=== PATIENT | female | born 1940 | race Caucasian/White ===

== ENCOUNTER → 2017-09-03 | Outpatient (CLI) | payer MEDICARE, BC ==
[~2017-09-03] MED LIST: AMLO5TAB4 PO; ATOR20TA PO; CLON0.5T3 PO; DIAZ5TAB4 PO; FERR-26 PO; IBUP-1060 PO; IBUP1TAB7 PO; LINA145C PO; MOME17SP NS; RANI300C PO; TRIA1CAP3 PO
--- NOTE | 2017-09-03 14:36 | KCIC ---
MRI right knee without contrast dated 09/03/2017 1:15 PM Indication: Knee pain instability lateral pain, worsening in recent months. Comparison: No comparison is available. Technique: Routine multiplanar multisequence imaging performed. . Findings: Bone marrow signal is homogeneous. No marrow edema. Mild tricompartmental hypertrophic change. Thinning and surface irregularity of the articular cartilage throughout. Full-thickness cartilage loss at the medial aspect of the lateral femoral condyle. Full-thickness cartilage loss is also noted at the patellar apex and medial patellar facet and lateral femoral trochlea. Small joint effusion. No significant popliteal cyst. No intra-articular loose body. Anterior cruciate and posterior cruciate ligaments are intact. Medial and lateral collateral complexes are intact. Iliotibial band, popliteus tendon and pes anserine complex within normal limits. There is mild increased signal within the substance of the popliteus tendon proximally. Quadriceps and patellar tendon are intact. No abnormality of the medial or lateral retinaculum. Horizontal oblique tear lateral meniscal body with linear signal extending to the femoral articular surface on 2 consecutive coronal slices. There is also blunting of the free edge of the anterior horn lateral meniscus. Possible displaced meniscal fragment at the anterior aspect the intercondylar notch (series 10 image 15). Posterior horn is intact. Medial meniscus is normal in morphology and signal. IMPRESSION: 1. Complex tear anterior horn/body of lateral meniscus. 2. 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 There is full-thickness cartilage loss at the anterior and lateral compartments. 3. Small joint effusion. 4. Mild popliteus tendinosis. Electronically signed by: Lance Lorenzo MD (09/03/2017 2:33 PM) [id number]
== END | disposition home or self-care (01) ==
LOC: KCIC MRI 13:05
PROVIDERS: ATTEND Family Medicine
DX: S83.281A Other tear of lateral meniscus, current injury, right knee, initial encounter (principal); M17.11 Unilateral primary osteoarthritis, right knee; X58.XXXA Exposure to other specified factors, initial encounter; Y93.89 Activity, other specified; Y92.89 Other specified places as the place of occurrence of the external cause; Y99.8 Other external cause status
CPT/HCPCS: 73721

== ENCOUNTER 2022-02-09 12:03 | Inpatient (IN) | payer MEDICARE, BC ==
[~2022-02-09] VITALS: Ht 162.6 cm; Wt 52.5 kg
[~2022-02-09 12:03] MED LIST changes: +CLON-77 PO; -CLON0.5T3 PO; -FERR-26 PO; +FERR325T14 PO; -LINA145C PO; +LINZESS145 MCG PO; -MOME17SP NS; +MOME17SP5 NS
--- NOTE | 2022-02-09 13:30 | NUR ---
received Lupe from [facility]. awaiting orders. history and admission completed. saline lock present right ac.
[2022-02-09 13:31] VITALS: BP 153/48
[2022-02-09 15:00] VITALS: BP 154/44
[2022-02-09] MEDS ORDERED: ONDANSETRON PF 4 MG/2 ML VIAL. IVP PRN (15:45)
[2022-02-09] MEDS ORDERED: ACETAMINOPHEN 325 MG TABLET. PO PRN (15:45)
[2022-02-09] MEDS ORDERED: ELECTROLYTE (NON-ICU) PROTOCOL. MC PRN (15:45)
[2022-02-09] MEDS ORDERED: oxyCODONE/APAP 5/325 1 TAB TABLET PO PRN (15:45)
[2022-02-09] MEDS ORDERED: CALCIUM CARBONATE 500 MG TAB.CHEW PO PRN (15:45)
--- NOTE | 2022-02-09 16:00 | NUR ---
original dressing from [facility] removed and photo taken and replace dressing. dr. Bobo here orders received consults called in
--- NOTE | 2022-02-09 17:00 | NUR ---
dr. Ramirez here. removed dressing. daughter here. she is planning debridement and skin graft on
--- NOTE | 2022-02-09 17:20 | PDOC2 ---
CONSULT Date of Consult Date of Consult DATE: 02/09/22 TIME: 17:16 Reason for Consult Reason for Consult: Left forearm wound Referring Physician Referring Physician: MD Amie Identification/Chief Complaint Chief Complaint Left forearm wound status post fall Source Source: Caregiver, Chart review, Patient History of Present Illness Reason for Visit: Patient presents as a transfer from [facility]. She was admitted there approximately 2 days ago after suffering a fall of unknown etiology. As result of her fall she sustained a traumatic skin avulsion of her left forearm, resulting in the sloughing of the skin, revealing the underlying subcutaneous tissue. Her daughter showed me a photo of the initial wound. The patient is taking Eliquis for atrial fibrillation, her last dose was received today per nursing staff. Staff reports that x-rays were obtained and were negative for fracture or dislocation. Patient denies signs or symptoms of infection such as fever, chills, nausea, vomiting, fluctuance, purulent discharge, itching, or increasing pain at the site. Past Medical History Past Medical History Hypertension, hyperlipidemia, atrial fibrillation on Eliquis, hypothyroidism Past Surgical History Past Surgical History Noncontributory Family History Family History Noncontributory Social History Quit Current Problem List Problem List Left forearm wound, status post fall Active anticoagulation Current Medications Current Medications Current Medications Ondansetron HCl (Zofran) 4 mg PRN Q6HRS PRN IVP NAUSEA/VOMITING; Start 02/09/22 at 15:45 Calcium Carbonate/ Glycine (Tums) 500 mg PRN Q3HRS PRN PO UPSET STOMACH; Start 02/09/22 at 15:45 Info (Non-Icu Electrolyte Protocol) 1 ea PRN DAILY PRN MC SEE COMMENTS; Start 02/09/22 at 15:45 Oxycodone/ Acetaminophen (Percocet 5/325) 1 tab PRN Q4HRS PRN PO MILD PAIN, 1ST CHOICE; Start 02/09/22 at 15:45 Oxycodone/ Acetaminophen (Percocet 5/325) 2 tab PRN Q4HRS PRN PO MODERATE PAIN, SEVERE PAIN; Start 02/09/22 at 15:45 Acetaminophen (Tylenol) 650 mg PRN Q6HRS PRN PO Headaches, Temp > 101.5F; Start 02/09/22 at 15:45 Senna/Docusate Sodium (Senna Plus) 1 tab BID PO ; Start 02/09/22 at 21:00 Amlodipine Besylate (Norvasc) 5 mg DAILY PO ; Start 02/10/22 at 09:00 Atorvastatin Calcium (Lipitor) 20 mg QHS PO ; Start 02/10/22 at 21:00 Diazepam (Valium) 5 mg DAILY PO ; Start 02/10/22 at 09:00 Ferrous Sulfate (Feosol) 325 mg DAILY PO ; Start 02/10/22 at 09:00 Fluticasone Propionate (Flonase) 2 spray DAILY NS ; Start 02/10/22 at 09:00 Famotidine (Pepcid) 20 mg BID PO ; Start 02/09/22 at 21:00 Triamterene/HCTZ (Maxzide 37.5/ 25mg) 1 tab DAILY PO ; Start 02/10/22 at 09:00 Active Scripts Active Reported Ferrous Sulfate 325 Mg Tablet 325 Mg PO Diazepam 5 Mg Tablet 5 Mg PO DAILY Linzess (Linaclotide) 145 Mcg Capsule 145 Mcg PO Norvasc (Amlodipine Besylate) 5 Mg Tablet 5 Mg PO DAILY Triamterene-Hctz 37.5-25 Mg Cp (Triamterene/Hydrochlorothiazid) 1 Each Capsule 1 Cap PO DAILY Lipitor (Atorvastatin Calcium) 20 Mg Tablet 20 Mg PO DAILY Clonazepam (Clonazepam) 0.5 Mg Tablet 0.5 Mg PO BID Ibuprofen 800 Mg Tablet 800 Mg PO Q6H PRN Ranitidine Hcl 300 Mg Capsule 300 Mg PO DAILY Nasonex (Mometasone Furoate) 17 Gm [place].pump 2 Sprays NS DAILY Motrin Pm Caplet (Ibuprofen/Diphenhydramine Cit) 1 Each Tablet 1 Each PO Allergies Allergies: Coded Allergies: propoxyphene (Verified Allergy, Intermediate, 02/09/22) ROS Review of System See HPI Physical Exam General: Alert, Oriented X3, Cooperative Lungs: Normal air movement Extremities: Other (Left forearm with large dorsal wound measuring at least 15 x 7 cm with nonexpanding hematoma distally and devitalized epidermis overlying the hematoma. Some exposed dermis. Xeroform dressing, ABD, and rolled gauze reapplied. Patient with good range of motion of the digits, hand, wrist, forearm, and elbow. Sensation intact surrounding the wound. Neurovascularly intact.) Skin: Other (Bruising across left arm and left lateral chest wall/flank) Neuro: Other (Ambulates with assistance and use of walker) Vitals VITALS Vital Signs Date Time Temp Pulse Resp B/P (MAP) Pulse Ox O2 Delivery O2 Flow Rate FiO2 02/09/22 15:00 97.9 67 10 154/44 (80) 92 Room Air 97.9 02/09/22 13:31 2.0 Labs Labs Pending review Images Images Pending review Assessment/Plan Assessment/Plan 02/07 Pt 10.2, INR 1, apTT <21sec 02/08: WBC 6.3, Hgb 10.4, Hct 31.8, Plts 169 The patient has a fairly large wound to the dorsum of her left forearm. Considering the devitalized tissue, stable hematoma, and pictures of the exposed subcutaneous tissue, the prospects of this healing on its own are slim. We will verify when the patient's last dose of Eliquis was taken. Staff advised to discontinue Eliquis now. Will plan to debride the left forearm wound this week pending OR availability. We will plan for split thickness skin graft versus wound VAC depending on operative findings. Discussed the plan with the patient and her daughter. They understood and agreed. Please obtain new labs and will follow up timing of last Eliquis dose. MD LILIANA Best RAVEN C MD Feb 09, 2022 17:20
[2022-02-09] MEDS: oxyCODONE/APAP 5/325 1 TAB TABLET PO PRN (18:00)
--- NOTE | 2022-02-09 19:27 | PDOC1 ---
History and Physical Date of Service: DOS: DATE: 02/09/22 TIME: 19:26 Chief Complaint: Chief Complain: arm laceration History of Present Illness: HPI: Patient transferred from outside facility due to right arm laceration possibly needing surgical intervention. Patient definitely has some baseline mental deficits that has been providing a pretty inconsistent history. She told me that she fell at home causing the laceration and she has been at [facility] for the past week and transferred here from there for surgery eval. Transfer records indicate patient came from [facility]. History below obtained by plastic surgery provider Patient presents as a transfer from [facility]. She was admitted there approximately 2 days ago after suffering a fall of unknown etiology. As result of her fall she sustained a traumatic skin avulsion of her left forearm, resulting in the sloughing of the skin, revealing the underlying subcutaneous tissue. Her daughter showed me a photo of the initial wound. The patient is taking Eliquis for atrial fibrillation, her last dose was received today per nursing staff. Staff reports that x-rays were obtained and were negative for fracture or dislocation. Patient denies signs or symptoms of infection such as fever, chills, nausea, vomiting, fluctuance, purulent discharge, itching, or increasing pain at the site. Past Medical/Surgical History: PMH/PSH: HTN, Afib,, anxiety Allergies: Allergies: Coded Allergies: propoxyphene (Verified Allergy, Intermediate, 02/09/22) Family History: Family History: none known Social History: Social History: Former smoker. Denies alcohol drug use Current Medications: Current Medications Current Medications Ondansetron HCl (Zofran) 4 mg PRN Q6HRS PRN IVP NAUSEA/VOMITING; Start 02/09/22 at 15:45 Calcium Carbonate/ Glycine (Tums) 500 mg PRN Q3HRS PRN PO UPSET STOMACH; Start 02/09/22 at 15:45 Info (Non-Icu Electrolyte Protocol) 1 ea PRN DAILY PRN MC SEE COMMENTS; Start 02/09/22 at 15:45 Oxycodone/ Acetaminophen (Percocet 5/325) 1 tab PRN Q4HRS PRN PO MILD PAIN, 1ST CHOICE Last administered on 02/09/22at 18:00; Start 02/09/22 at 15:45 Oxycodone/ Acetaminophen (Percocet 5/325) 2 tab PRN Q4HRS PRN PO MODERATE PAIN, SEVERE PAIN; Start 02/09/22 at 15:45 Acetaminophen (Tylenol) 650 mg PRN Q6HRS PRN PO Headaches, Temp > 101.5F; Start 02/09/22 at 15:45 Senna/Docusate Sodium (Senna Plus) 1 tab BID PO ; Start 02/09/22 at 21:00 Amlodipine Besylate (Norvasc) 5 mg DAILY PO ; Start 02/10/22 at 09:00 Atorvastatin Calcium (Lipitor) 20 mg QHS PO ; Start 02/10/22 at 21:00 Diazepam (Valium) 5 mg DAILY PO ; Start 02/10/22 at 09:00 Ferrous Sulfate (Feosol) 325 mg DAILY PO ; Start 02/10/22 at 09:00 Fluticasone Propionate (Flonase) 2 spray DAILY NS ; Start 02/10/22 at 09:00 Famotidine (Pepcid) 20 mg BID PO ; Start 02/09/22 at 21:00 Triamterene/HCTZ (Maxzide 37.5/ 25mg) 1 tab DAILY PO ; Start 02/10/22 at 09:00 Active Scripts Active Reported Ferrous Sulfate 325 Mg Tablet 325 Mg PO Diazepam 5 Mg Tablet 5 Mg PO DAILY Linzess (Linaclotide) 145 Mcg Capsule 145 Mcg PO Norvasc (Amlodipine Besylate) 5 Mg Tablet 5 Mg PO DAILY Triamterene-Hctz 37.5-25 Mg Cp (Triamterene/Hydrochlorothiazid) 1 Each Capsule 1 Cap PO DAILY Lipitor (Atorvastatin Calcium) 20 Mg Tablet 20 Mg PO DAILY Clonazepam (Clonazepam) 0.5 Mg Tablet 0.5 Mg PO BID Ibuprofen 800 Mg Tablet 800 Mg PO Q6H PRN Ranitidine Hcl 300 Mg Capsule 300 Mg PO DAILY Nasonex (Mometasone Furoate) 17 Gm [place].pump 2 Sprays NS DAILY Motrin Pm Caplet (Ibuprofen/Diphenhydramine Cit) 1 Each Tablet 1 Each PO ROS: Review of Systems Review of System Unless noted HPI 14 point review of systems was negative Physical Exam: Vital Signs: Vital Signs Date Time Temp Pulse Resp B/P (MAP) Pulse Ox O2 Delivery O2 Flow Rate FiO2 02/09/22 18:00 20 02/09/22 15:00 97.9 67 154/44 (80) 92 Room Air 97.9 02/09/22 14:00 2.0 Physcial Exam: GEN: No apparent distress. Alert and oriented HEENT: Normal cephalic, atraumatic, external auditory canals are patent EYES: Extraocular muscles are intact, pupil are equally round and reactive to light and accommodation MUSCULOSKELETAL: Well developed , well nourished, good range of motion ENDOCRINE: No thyromegaly was palpated LYMPHATICS: No cervical chain or axillary nodes were noted HEMATOPOIETIC: No bruising NECK: Supple, no JVD, no thyromegaly was noted LUNGS: Clear to auscultation in all lung ruiz without rhonchi or wheezing HEART: RRR, S!, S2 present. Peripheral pulses intact, no obvious murmurs noted ABDOMEN: Soft, nontender. Positive bowel sounds, no organomegaly, normal bowel sounds EXTREMITIES: Affected arm extensively dressed. I unwrapped the arm down to the level of the Kerlix. Pictures to be placed in chart NEUROLOGIC: Normal speech and tone. A&O x 3, moves all extremities, no obvious focal deficits PSYCHIATRIC: Normal affect, normal mood. Stable SKIN: No ulcerations or rashes, good skin turgor, no jaundice VASCULAR: Good capillary refill, neurovascular bundle appears to be intact Assessment/Plan Assessment/Plan Upper extremity laceration, history A. fib hypertension Presented with extensive laceration wound to upper extremity Consulted plastic surgery; possible surgery sometime this week. Continue holding patient's Eliquis As needed pain control Cardiac diet Home meds as indicated Wound care consult Justifications for Admission Other Justification CHILANGO LUCERO MD Feb 09, 2022 19:26
[2022-02-09 19:50] VITALS: BP 142/41
[2022-02-09] MEDS: FAMOTIDINE 20 MG TABLET. PO SCH (21:32)
[2022-02-09] MEDS: SENNOSIDES/DOCUSATE 8.6/50MG TABLET. PO SCH (21:32)
[2022-02-09 23:00] VITALS: BP 113/47
[2022-02-10 03:30] VITALS: BP 151/56
[2022-02-10] MEDS: oxyCODONE/APAP 5/325 1 TAB TABLET PO PRN ×2 (05:25→20:54)
[2022-02-10 07:00] VITALS: BP 144/47
[2022-02-10] MEDS: SENNOSIDES/DOCUSATE 8.6/50MG TABLET. PO SCH ×2 (08:46→20:54)
[2022-02-10] MEDS: FERROUS SULFATE 325 MG TABLET. PO SCH (08:46)
[2022-02-10] MEDS: TRIAMTERENE/HCTZ 37.5/25MG TABLET. PO SCH (08:46)
[2022-02-10] MEDS: FAMOTIDINE 20 MG TABLET. PO SCH ×2 (08:46→20:54)
[2022-02-10] MEDS: diazePAM 5 MG TABLET PO SCH (09:00)
[2022-02-10 11:00] VITALS: BP 132/47
--- NOTE | 2022-02-10 11:26 | NUR ---
SW following. Chart reviewed, pt from home, 2L, cardiac diet. Wound care and Plastics following - plans for surgery this week. SW will continue to follow.
--- NOTE | 2022-02-10 12:39 | PDOC ---
[employer] PROGRESS NOTE Date of Service DOS: DATE: 02/10/22 TIME: 12:37 Chief Complaint Chief Complaint Upper extremity laceration, fell over using her walker history A. fib hypertension chronic diastolic CHF weakness and debility IBS, stool softeners added History of Present Illness History of Present Illness Presented with extensive laceration wound to upper extremity plastic surgery following, plan surgery sometime this week. holding patient's stephen Chandra for Hx of TIA, no prior CVA As needed pain control Cardiac diet Home meds as indicated Wound care consult Vitals/I&O Vitals/I&O: Vital Signs Date Time Temp Pulse Resp B/P (MAP) Pulse Ox O2 Delivery O2 Flow Rate FiO2 02/10/22 11:00 97.6 64 18 132/47 (75) 100 Nasal Cannula 2.0 97.6 I & O 02/09/22 02/09/22 02/10/22 14:59 22:59 06:59 Intake Total 100 ml Balance 100 ml Physical Exam General: Alert, Oriented X3, Cooperative, No acute distress Heart: No murmurs Lungs: Clear Abdomen: Normal bowel sounds Extremities: No clubbing, Other (Left forearm with large dorsal wound measuring at least 15 x 7 cm with nonexpanding hematoma distally and devitalized epidermis overlying the hematoma. Some exposed dermis. Xeroform dressing, ABD, and rolled gauze reapplied. Patient with good range of motion of the digits, hand, wrist, forearm, and elbow. Sensation intact surrounding the wound. Neurovascularly intact.) Skin: No rashes, Other (Bruising across left arm and left lateral chest wall/flank) Comment Review of Relevant I have reviewed the following items jess (where applicable) has been applied. Medications: Current Medications Medications (Trade) Dose Ordered Sig/Serena Route PRN Reason Start Time Stop Time Status Last Admin Dose Admin Oxycodone/ Acetaminophen (Percocet 5/325) 1 tab PRN Q4HRS PRN PO MILD PAIN, 1ST CHOICE 02/09/22 15:45 02/10/22 05:25 Senna/Docusate Sodium (Senna Plus) 1 tab BID PO 02/09/22 21:00 02/10/22 08:46 Amlodipine Besylate (Norvasc) 5 mg DAILY PO 02/10/22 09:00 02/10/22 08:46 Ferrous Sulfate (Feosol) 325 mg DAILY PO 02/10/22 09:00 02/10/22 08:46 Famotidine (Pepcid) 20 mg BID PO 02/09/22 21:00 02/10/22 08:46 Triamterene/HCTZ (Maxzide 37.5/ 25mg) 1 tab DAILY PO 02/10/22 09:00 02/10/22 08:46 Justifications for Admission Other Justification LUIZ MERCADO MD Feb 10, 2022 12:39
[2022-02-10] MEDS ORDERED: POLYETHYLENE GLYCOL 3350 17 GM PACKET. PO ONE (13:00)
[2022-02-10 15:00] VITALS: BP 140/53
[2022-02-10] MEDS: DOCUSATE SODIUM 100 MG CAPSULE. PO SCH (17:44)
[2022-02-10] MEDS: FLUTICASONE 50MCG/NASAL SPRAY 16GM BOTTLE. NS SCH (17:44)
[2022-02-10 19:30] VITALS: BP 127/80
[2022-02-10] MEDS: ATORVASTATIN CALCIUM 20 MG TABLET PO SCH (20:54)
[2022-02-10] MEDS ORDERED: POLYETHYLENE GLYCOL 3350 17 GM PACKET. PO PRN (22:00)
[2022-02-10 23:18] VITALS: BP 130/44
[2022-02-11 03:19] VITALS: BP 124/46
[2022-02-11 06:09] LABS: BASO % 0 % (0-3); EOS % 0 % (0-3); LYMPH % 24 % (24-48); MEAN CORPUSCULAR HEMOGLOBIN 32 pg (25-35); MEAN CORPUSCULAR HGB CONC 32 g/dL (31-37); MEAN CORPUSCULAR VOLUME 98 fL (79-100); MONO # 0.7 x10^3/uL (0.0-1.1); MONO % 9 % (0-9); NEUT # 5.4 x10^3/uL (1.8-7.7); NEUT % 66 % (31-73); PLATELET COUNT 219 x10^3/uL (140-400); RED BLOOD COUNT 3.47 x10^6/uL (3.50-5.40); RED CELL DISTRIBUTION WIDTH 13.8 % (11.5-14.5); WHITE BLOOD COUNT 8.2 x10^3/uL (4.0-11.0)
[2022-02-11 06:31] LABS: ALBUMIN 2.9 g/dL (3.4-5.0); ALBUMIN/GLOBULIN RATIO 0.9 (1.0-1.7); CALCIUM 9.2 mg/dL (8.5-10.1); CREATININE 1.3 mg/dL (0.6-1.0); GFR 39.1; POTASSIUM 4.1 mmol/L (3.5-5.1); TOTAL BILIRUBIN 0.4 mg/dL (0.2-1.0); TOTAL PROTEIN 6.2 g/dL (6.4-8.2)
[2022-02-11 07:15] VITALS: BP 137/42
[2022-02-11] MEDS: FLUTICASONE 50MCG/NASAL SPRAY 16GM BOTTLE. NS SCH (09:00)
[2022-02-11] MEDS: DOCUSATE SODIUM 100 MG CAPSULE. PO SCH (09:00)
[2022-02-11] MEDS: SENNOSIDES/DOCUSATE 8.6/50MG TABLET. PO SCH ×2 (09:00→20:59)
[2022-02-11] MEDS: FERROUS SULFATE 325 MG TABLET. PO SCH (09:00)
[2022-02-11 10:54] VITALS: BP 135/59
[2022-02-11] MEDS: diazePAM 5 MG TABLET PO SCH (12:08)
[2022-02-11] MEDS: TRIAMTERENE/HCTZ 37.5/25MG TABLET. PO SCH (12:08)
[2022-02-11] MEDS: FAMOTIDINE 20 MG TABLET. PO SCH ×2 (12:08→20:59)
--- NOTE | 2022-02-11 13:02 | PDOC ---
[employer] PROGRESS NOTE Date of Service DOS: DATE: 02/11/22 TIME: 13:01 Chief Complaint Chief Complaint Upper extremity laceration, fell over using her walker history A. fib hypertension chronic diastolic CHF weakness and debility IBS, stool softeners added History of Present Illness History of Present Illness Presented with extensive laceration wound to upper extremity plastic surgery following, plan surgery sometime this week. holding patient's stephen Chandra for Hx of TIA, no prior CVA As needed pain control Cardiac diet Home meds as indicated Wound care consult she feels that prior stay at [facility] "did nothing for her" she was there 6 weeks due to falls, she wound prefer to DC home if able Vitals/I&O Vitals/I&O: Vital Signs Date Time Temp Pulse Resp B/P (MAP) Pulse Ox O2 Delivery O2 Flow Rate FiO2 02/11/22 12:09 83 135/59 02/11/22 10:54 98.6 16 92 Room Air 98.6 02/11/22 07:15 2.0 I & O 02/10/22 02/10/22 02/11/22 15:00 23:00 07:00 Intake Total 120 ml Balance 120 ml Physical Exam General: Alert, Oriented X3, Cooperative, No acute distress Heart: No murmurs Lungs: Clear Abdomen: Normal bowel sounds Extremities: No clubbing, Other (Left forearm with large dorsal wound measuring at least 15 x 7 cm with nonexpanding hematoma distally and devitalized epidermis overlying the hematoma. Some exposed dermis. Xeroform dressing, ABD, and rolled gauze reapplied. Patient with good range of motion of the digits, hand, wrist, forearm, and elbow. Sensation intact surrounding the wound. Neurovascularly intact.) Skin: No rashes, Other (Bruising across left arm and left lateral chest wall/flank) Labs Labs: Laboratory Tests Test 02/11/22 05:45 White Blood Count 8.2 x10^3/uL (4.0-11.0) Red Blood Count 3.47 x10^6/uL (3.50-5.40) Hemoglobin 11.0 g/dL (12.0-15.5) Hematocrit 34.0 % (36.0-47.0) Mean Corpuscular Volume 98 fL (79-100) Mean Corpuscular Hemoglobin 32 pg (25-35) Mean Corpuscular Hemoglobin Concent 32 g/dL (31-37) Red Cell Distribution Width 13.8 % (11.5-14.5) Platelet Count 219 x10^3/uL (140-400) Neutrophils (%) (Auto) 66 % (31-73) Lymphocytes (%) (Auto) 24 % (24-48) Monocytes (%) (Auto) 9 % (0-9) Eosinophils (%) (Auto) 0 % (0-3) Basophils (%) (Auto) 0 % (0-3) Neutrophils # (Auto) 5.4 x10^3/uL (1.8-7.7) Lymphocytes # (Auto) 2.0 x10^3/uL (1.0-4.8) Monocytes # (Auto) 0.7 x10^3/uL (0.0-1.1) Eosinophils # (Auto) 0.0 x10^3/uL (0.0-0.7) Basophils # (Auto) 0.0 x10^3/uL (0.0-0.2) Sodium Level 137 mmol/L (136-145) Potassium Level 4.1 mmol/L (3.5-5.1) Chloride Level 99 mmol/L (98-107) Carbon Dioxide Level 34 mmol/L (21-32) Anion Gap 4 (6-14) Blood Urea Nitrogen 25 mg/dL (7-20) Creatinine 1.3 mg/dL (0.6-1.0) Estimated GFR (Cockcroft-Gault) 39.1 BUN/Creatinine Ratio 19 (6-20) Glucose Level 101 mg/dL (70-99) Calcium Level 9.2 mg/dL (8.5-10.1) Total Bilirubin 0.4 mg/dL (0.2-1.0) Aspartate Amino Transf (AST/SGOT) 17 U/L (15-37) Alanine Aminotransferase (ALT/SGPT) 13 U/L (14-59) Alkaline Phosphatase 101 U/L (46-116) Total Protein 6.2 g/dL (6.4-8.2) Albumin 2.9 g/dL (3.4-5.0) Albumin/Globulin Ratio 0.9 (1.0-1.7) Comment Review of Relevant I have reviewed the following items jess (where applicable) has been applied. Medications: Current Medications Medications (Trade) Dose Ordered Sig/Serena Route PRN Reason Start Time Stop Time Status Last Admin Dose Admin Atorvastatin Calcium (Lipitor) 20 mg QHS PO 02/10/22 21:00 02/10/22 20:54 Justifications for Admission Other Justification LUIZ MERCADO MD Feb 11, 2022 13:02
[2022-02-11] MEDS: oxyCODONE/APAP 5/325 1 TAB TABLET PO PRN ×2 (13:27→20:59)
[2022-02-11 14:55] VITALS: BP 101/39
--- NOTE | 2022-02-11 15:26 | NUR ---
Wound/Ostomy Care Wound Type/Assessment: WC consult for r arm laceration, pt has large skin tear that skin flap has marie reapproximated but has underlying hematoma. Cleansed, assessed, pictured and measured and redressed wound. Dr Ramirez plans to take pt to OR on Wednesday Treatment Recommendations/Plan: Leave dressing in place until Wednesday. Collagen, vaseline gauze, ABD and kerlix, Change every other day Education provided: PU prevention and WC POC, pt will need reinforcement Offloading surface/device: TQ2H, float heels Recommended Referrals/Tests: na Discharge Recommendations for dressings: see above, WC will defer to Dr Ramirez
[2022-02-11 19:55] VITALS: BP 126/62
[2022-02-11] MEDS: ATORVASTATIN CALCIUM 20 MG TABLET PO SCH (20:58)
[2022-02-11 23:38] VITALS: BP 130/47
[2022-02-12 03:26] VITALS: BP 118/49
[2022-02-12 07:00] VITALS: BP 133/52
[2022-02-12] MEDS: DOCUSATE SODIUM 100 MG CAPSULE. PO SCH (09:07)
[2022-02-12] MEDS: diazePAM 5 MG TABLET PO SCH (09:07)
[2022-02-12] MEDS: TRIAMTERENE/HCTZ 37.5/25MG TABLET. PO SCH (09:08)
[2022-02-12] MEDS: SENNOSIDES/DOCUSATE 8.6/50MG TABLET. PO SCH ×3 (09:08→21:00)
[2022-02-12] MEDS: FAMOTIDINE 20 MG TABLET. PO SCH ×2 (09:08→20:59)
[2022-02-12] MEDS: FERROUS SULFATE 325 MG TABLET. PO SCH (09:08)
--- NOTE | 2022-02-12 09:19 | PDOC ---
[employer] PROGRESS NOTE Date of Service DOS: DATE: 02/12/22 TIME: 09:18 Chief Complaint Chief Complaint Upper extremity laceration, fell over using her walker history A. fib hypertension chronic diastolic CHF weakness and debility IBS, stool softeners added History of Present Illness History of Present Illness 02/12, pt doing OK needs Pt and OT plan surg soon, Discused with DR. Ramirez could consider hospice due to falls and weakness and [facility] Presented with extensive laceration wound to upper extremity plastic surgery following, plan surgery sometime this week. holding patient's stephen Chandra for Hx of TIA, no prior CVA As needed pain control Cardiac diet Home meds as indicated Wound care consult she feels [facility]" she was there 6 weeks due to falls, she wound prefer to DC home if able Vitals/I&O Vitals/I&O: Vital Signs Date Time Temp Pulse Resp B/P (MAP) Pulse Ox O2 Delivery O2 Flow Rate FiO2 02/12/22 09:08 77 133/52 02/12/22 07:00 16 92 Room Air 02/12/22 03:26 97.5 97.5 02/11/22 07:15 2.0 I & O 02/11/22 02/11/22 02/12/22 15:00 23:00 07:00 Intake Total 240 ml 120 ml 60 ml Balance 240 ml 120 ml 60 ml Physical Exam General: Alert, Oriented X3, Cooperative, No acute distress Heart: No murmurs Lungs: Clear Abdomen: Normal bowel sounds Extremities: No clubbing, Other (Left forearm with large dorsal wound measuring at least 15 x 7 cm with nonexpanding hematoma distally and devitalized epidermis overlying the hematoma. Some exposed dermis. Xeroform dressing, ABD, and rolled gauze reapplied. Patient with good range of motion of the digits, hand, wrist, forearm, and elbow. Sensation intact surrounding the wound. Neurovascularly intact.) Skin: No rashes, Other (Bruising across left arm and left lateral chest wall/flank) Comment Review of Relevant I have reviewed the following items jess (where applicable) has been applied. Justifications for Admission Other Justification LUIZ MERCADO MD Feb 12, 2022 09:19
--- NOTE | 2022-02-12 09:24 | PDOC ---
Provider Note Date of Service: DATE: 02/12/22 TIME: 09:24 Provider Note S: Patient examined at the bedside. No acute events since our initial consultation. No expansion of the hematoma of the left forearm or at other sites. O: Afebrile. Stable vitals. General: No acute distress Lungs: Nonlabored breathing on room air Extremities: Left forearm bandage intact, dry. Good mobility of the extremity. Psych: Good mood, appropriate affect Neuro: Sensation intact to left upper extremity. Labs: 02/11 CBC wbc 8.2, hgb plt 219 A/P: 81-year-old female with left forearm hematoma status post fall. Stable. We will proceed with evacuation of the left forearm hematoma, debridement of the left forearm wound, possible placement of wound VAC, possible split- thickness skin graft with the left lateral thigh as a donor site on Wednesday, M arch 2021. Discussed the risks, benefits, and alternatives to the procedure with the patient. Discussed the risk of bleeding, infection, need for repeated debridements, prolonged wound care, need for split-thickness skin graft, possible return to the operating room, possible failure of skin graft. The patient understood the risks and desired to proceed. Silvia Ford MD Justifications for Admission Other Justification SILVIA FORD MD Feb 12, 2022 09:24
[2022-02-12] MEDS: FLUTICASONE 50MCG/NASAL SPRAY 16GM BOTTLE. NS SCH (09:33)
[2022-02-12 10:53] VITALS: BP 112/37
--- NOTE | 2022-02-12 14:51 | NUR ---
cande colon Addendum: 02/12/22 at 1452 by RADHA MOREJON LPN LPN cande salazar and PCR sent to [place] [id number]
[2022-02-12 15:00] VITALS: BP 115/47
[2022-02-12] MEDS: FLUDROCORTISONE 0.1 MG TABLET PO SCH (16:19)
[2022-02-12 19:00] VITALS: BP 103/50
[2022-02-12] MEDS: ATORVASTATIN CALCIUM 20 MG TABLET PO SCH (20:59)
[2022-02-12] MEDS: oxyCODONE/APAP 5/325 1 TAB TABLET PO PRN (21:01)
[2022-02-12] MEDS ORDERED: MORPHINE SULFATE 2 MG/ML INJ. IVP PRN ×2 (21:45)
[2022-02-12 23:19] VITALS: BP 119/45
[2022-02-13] VITALS (14 sets, daily range): BP systolic 74–175; BP diastolic 36–88
[2022-02-13] MEDS ORDERED: HYDROmorphone 2 MG/ML INJ. IVP PRN (06:00)
[2022-02-13] MEDS ORDERED: PROCHLORPERAZINE 10 MG/2 ML VIAL. IVP PRN (06:00)
[2022-02-13] MEDS ORDERED: fentaNYL PF VIAL 100 MCG/2 ML VIAL IVP PRN (06:00)
[2022-02-13] MEDS ORDERED: IV RINGERS,LACTATED 1000ML 1,000 ML IV SCH (06:00)
[2022-02-13] MEDS ORDERED: MORPHINE SULFATE 2 MG/ML INJ. IVP PRN (06:00)
[2022-02-13] MEDS: SODIUM HYPOCHLORITE 0.25% 473 ML BOTTLE. TP ONE ×2 (07:10→12:49)
[2022-02-13] MEDS ORDERED: ONDANSETRON PF 4 MG/2 ML VIAL. ONE (08:54)
[2022-02-13] MEDS ORDERED: DEXAMETHASONE SOD PHOS 4 MG/ML VIAL ONE (08:54)
[2022-02-13] MEDS ORDERED: LIDOCAINE 2% PF 5 ML VIAL. ONE (08:54)
[2022-02-13] MEDS ORDERED: PROPOFOL 10 MG/ML (20ML) VIAL. IV ONE (08:54)
[2022-02-13] MEDS: diazePAM 5 MG TABLET PO SCH (09:24)
[2022-02-13] MEDS: TRIAMTERENE/HCTZ 37.5/25MG TABLET. PO SCH (09:25)
[2022-02-13] MEDS ORDERED: IV NORMAL SALINE 500ML BAG 500 ML IV ONE (09:30)
[2022-02-13] MEDS: SENNOSIDES/DOCUSATE 8.6/50MG TABLET. PO SCH ×2 (09:44→21:32)
[2022-02-13] MEDS: DOCUSATE SODIUM 100 MG CAPSULE. PO SCH (09:45)
[2022-02-13] MEDS: FAMOTIDINE 20 MG TABLET. PO SCH ×2 (09:45→21:32)
[2022-02-13] MEDS: FLUDROCORTISONE 0.1 MG TABLET PO SCH (09:46)
[2022-02-13] MEDS: FERROUS SULFATE 325 MG TABLET. PO SCH (09:46)
[2022-02-13] MEDS: FLUTICASONE 50MCG/NASAL SPRAY 16GM BOTTLE. NS SCH (09:47)
[2022-02-13] MEDS ORDERED: fentaNYL PF VIAL 100 MCG/2 ML VIAL ONE ×2 (10:52→15:10)
[2022-02-13] MEDS ORDERED: EPINEPHrine 1 MG/ML VIAL ONE (11:05)
[2022-02-13] MEDS ORDERED: 0.9 % SODIUM CHLORIDE 20 ML VIAL. IJ ONE (11:05)
[2022-02-13] MEDS ORDERED: LIDOCAINE 1% PF 30 ML VIAL. ONE (11:05)
[2022-02-13] MEDS ORDERED: PHENYLEPHRINE in 0.9% NACL PF 1 MG/10 ML SYRINGE. IV ONE (11:14)
[2022-02-13 11:19] LABS: CALCIUM 9.2 mg/dL (8.5-10.1); CREATININE 1.2 mg/dL (0.6-1.0); GFR 42.9; MAGNESIUM 2.6 mg/dL (1.8-2.4); POTASSIUM 3.9 mmol/L (3.5-5.1)
[2022-02-13] MEDS ORDERED: BUPIVACAINE-EPI 0.25%-1:200000 MPF 30 ML VIAL. ONE (11:46)
[2022-02-13] MEDS ORDERED: MINERAL OIL for SURGERY 10 ML VIAL. MC ONE (11:46)
[2022-02-13] MEDS ORDERED: BACITRACIN TOPICAL OINT PACKET. TP ONE (12:26)
[2022-02-13] MEDS ORDERED: BUPIVACAINE-EPI 0.25% 30 ML VIAL KIT. ONE (12:30)
--- NOTE | 2022-02-13 14:49 | NUR ---
SW following. Discussed with RN, pt from home, in surgery today. Therapy recommending SNF. SW attempted to meet with pt, however pt in surgery. Will revisit on Wednesday. Pt will need a COVID PCR for placement if agreeable. SW will continue to follow.
[2022-02-13] MEDS: fentaNYL PF VIAL 100 MCG/2 ML VIAL IVP PRN ×2 (15:15→15:36)
--- NOTE | 2022-02-13 16:31 | PDOC ---
[facility] PROGRESS NOTE Date of Service DOS: DATE: 02/13/22 TIME: 16:30 Chief Complaint Chief Complaint Upper extremity laceration, fell over using her walker history A. fib hypertension chronic diastolic CHF weakness and debility IBS, stool softeners added History of Present Illness History of Present Illness 02/13/22 No acute events overnight. Working with PT this morning with strong positive orthostatic hypotension. 500 NS bolus given and pre-op labs obtained. All antihypertensives held. 02/12, pt doing OK needs Pt and OT plan surg soon, Discused with DR. Ramirez could consider hospice due to falls and weakness and poor improvement [facility] Presented with extensive laceration wound to upper extremity plastic surgery following, plan surgery sometime this week. holding patient's stephen Chandra for Hx of TIA, no prior CVA As needed pain control Cardiac diet Home meds as indicated Wound care consult she feels that [facility] "[facility] her" she was there 6 weeks due to falls, she wound prefer to DC home if able Vitals/I&O Vitals/I&O: Vital Signs Date Time Temp Pulse Resp B/P (MAP) Pulse Ox O2 Delivery O2 Flow Rate FiO2 02/13/22 15:31 84 13 146/49 99 Nasal Cannula 2.0 02/13/22 14:46 99.0 99.0 I & O 02/12/22 02/12/22 02/13/22 15:00 23:00 07:00 Intake Total 240 ml 120 ml 380 ml Output Total 1 ml Balance 240 ml 119 ml 380 ml Physical Exam General: Alert, Oriented X3, Cooperative, No acute distress Heart: No murmurs Lungs: Clear Abdomen: Normal bowel sounds Extremities: No clubbing, Other (Left forearm with large dorsal wound measuring at least 15 x 7 cm with nonexpanding hematoma distally and devitalized epidermis overlying the hematoma. Some exposed dermis. Xeroform dressing, ABD, and rolled gauze reapplied. Patient with good range of motion of the digits, hand, wrist, forearm, and elbow. Sensation intact surrounding the wound. Neurovascularly intact.) Skin: No rashes, Other (Bruising across left arm and left lateral chest wall/flank) Labs Labs: Laboratory Tests Test 02/13/22 10:40 Sodium Level 136 mmol/L (136-145) Potassium Level 3.9 mmol/L (3.5-5.1) Chloride Level 100 mmol/L (98-107) Carbon Dioxide Level 32 mmol/L (21-32) Anion Gap 4 (6-14) Blood Urea Nitrogen 32 mg/dL (7-20) Creatinine 1.2 mg/dL (0.6-1.0) Estimated GFR (Cockcroft-Gault) 42.9 Glucose Level 90 mg/dL (70-99) Calcium Level 9.2 mg/dL (8.5-10.1) Magnesium Level 2.6 mg/dL (1.8-2.4) Comment Review of Relevant I have reviewed the following items jess (where applicable) has been applied. Medications: Current Medications Medications (Trade) Dose Ordered Sig/Serena Route PRN Reason Start Time Stop Time Status Last Admin Dose Admin Fentanyl Citrate (Fentanyl 2ml Vial) 50 mcg PRN Q5MIN PRN IVP MODERATE PAIN 4-6 02/13/22 06:00 02/13/22 20:00 02/13/22 15:36 Morphine Sulfate (Morphine Sulfate) 2 mg PRN Q2HR PRN IVP SEVERE PAIN 7-10 02/12/22 21:45 02/12/22 22:58 Epinephrine HCl (Adrenalin) 1 mg STK-MED ONCE .ROUTE 02/13/22 11:05 02/13/22 11:05 DC 02/13/22 11:52 Bupivacaine HCl/ Epinephrine Bitart (Sensorcaine-Epi 0.25%-1:933943 Mpf) 30 ml STK-MED ONCE .ROUTE 02/13/22 11:46 02/13/22 11:47 DC 02/13/22 11:51 Justifications for Admission Other Justification ARIS GRIER MD Feb 13, 2022 16:31
--- NOTE | 2022-02-13 16:39 | PDOC4 ---
OPERATIVE NOTE Date: Date: Feb 13, 2022 Pre-Op Diagnosis: Left forearm traumatic hematoma, wound, and lacerations Post-Op Diagnosis: Same Procedure Performed: Evacuation of left forearm hematoma, debridement of left forearm wound prior to grafting, split-thickness skin grafting to left forearm wound, repair of left forearm lacerations x2 [employer] Incision: 11:41AM - 12:55PM, 2:03PM - 2:30PM Surgeon: Silvia Ford MD Anesthesia Type: General endotracheal anesthesia Blood Loss: 50 cc Specimans Obtained: None Findings: See operative note Complications: None Operative Note: Informed consent was taken in the patient's hospital room. The procedure consisting of evacuation of the left forearm hematoma with debridement of devitalized tissue and the possibility of a split-thickness skin graft from the left lateral thigh and wound VAC were discussed with the patient. The risks of the procedure were also discussed including, but not limited to, bleeding, infection, pain, scarring, wound healing issues, complete or partial loss of the skin graft, recurrent hematoma, need for additional or revision procedures, need for advanced reconstruction. The patient understood the risks and desire to proceed. The patient was taken to the operating room and placed on the OR table in the supine position. A timeout was completed verifying the correct patient and correct procedure. IV antibiotics were given. SCDs were placed. General anesthesia was induced. The patient's left upper extremity and left lateral thigh were prepped with Betadine and draped in a sterile fashion. The soft tissues in and around the wound were infiltrated with a mixture of 0.25% bupivacaine with epinephrine and a solution of saline with epinephrine. I began by gently elevating and analyzing the skin overlying the hematoma to see if it could be preserved and used as a skin graft. The skin was defatted and hematoma was removed and the skin preserved for later use. The hematoma was evacuated from the surrounding subcutaneous tissues using curettes and devitalized subcutaneous tissue was also removed with curettes. The wound was then thoroughly irrigated with 3 L of a diluted Betadine solution. The wound measured 19.2 cm x 10.1 cm x 0.4 cm. Next the lacerations of the proximal forearm measuring 5.0 cm x 3.2 cm and distal forearm measuring 2.1 cm x 1.3 cm were repaired using interrupted or running 4-0 nylon suture. Attention returned to wound coverage. The previously avulsed epidermis was further defatted and trimmed of obviously devitalized tissue and gently placed back onto the wound. It was secured to the surrounding tissues using 5-0 chromic suture. A defect measuring 11 x 5 cm remained after the preserved skin was reapplied as a graft. Therefore a dermatome was used to harvest an 11 cm x 5 cm skin graft from the left lateral thigh. The mesher was used to mesh the graft in a 1: 1.5 ratio. The skin graft was then placed onto the wound bed and secured to the surrounding skin with pro and secured to the remaining skin graft using 5-0 chromic suture. Mepitel was placed overlying the skin graft. Wound VAC was placed on top of the Mepitel and a good seal was obtained. The patient's forearm was wrapped with Kerlix. The patient tolerated the procedure well and was returned to the recovery room in stable condition. There was a delay in procedure completion secondary to equipment availability, 1 2:55 PM2:00 PM Skin grafts: 7.1 cm x 5.0 cm + 7.0 cm x 3.2 cm + 11.0 cm x 5.2 cm SILVIA FORD MD Feb 13, 2022 16:39
[2022-02-13] MEDS: ATORVASTATIN CALCIUM 20 MG TABLET PO SCH (21:32)
[2022-02-14 03:19] VITALS: BP 127/37
[2022-02-14 07:00] VITALS: BP 143/49
--- NOTE | 2022-02-14 09:15 | PDOC ---
[facility] PROGRESS NOTE Date of Service DOS: DATE: 02/14/22 TIME: 09:14 Chief Complaint Chief Complaint POD #1, evacuation of the left forearm hematoma, debridement of the left forearm wound, Upper extremity laceration, de-glove injury, fell over using her walker history A. fib hypertension chronic diastolic CHF weakness and debility IBS, stool softeners added History of Present Illness History of Present Illness 02.14, surg went well, Dr. Ramirez following PT and OT for DC plan will need skilled 02/13/22 No acute events overnight. Working with PT this morning with strong positive orthostatic hypotension. 500 NS bolus given and pre-op labs obtained. All antihypertensives held. 02/12, pt doing OK needs Pt and OT plan surg soon, Discused with DR. Ramirez could consider hospice due to falls and weakness and poor improvement [facility] Presented with extensive laceration wound to upper extremity plastic surgery following, plan surgery sometime this week. holding patient's stephen Chandra for Hx of TIA, no prior CVA As needed pain control Cardiac diet Home meds as indicated Wound care consult she feels that prior stay at [facility] "did nothing for her" she was there 6 weeks due to falls, she wound prefer to DC home if able Vitals/I&O Vitals/I&O: Vital Signs Date Time Temp Pulse Resp B/P (MAP) Pulse Ox O2 Delivery O2 Flow Rate FiO2 02/14/22 08:25 Nasal Cannula 2.0 02/14/22 07:00 97.3 72 20 143/49 (80) 94 97.3 I & O0 02/13/22 02/13/22 02/14/22 15:00 23:00 07:00 Intake Total 1150 ml 120 ml Output Total 10 ml Balance 1140 ml 120 ml Physical Exam General: Alert, Oriented X3, Cooperative, No acute distress Heart: No murmurs Lungs: Clear Abdomen: Normal bowel sounds Extremities: No clubbing, Other (Left forearm with large dorsal wound measuring at least 15 x 7 cm with nonexpanding hematoma distally and devitalized epidermis overlying the hematoma. Some exposed dermis. Xeroform dressing, ABD, and rolled gauze reapplied. Patient with good range of motion of the digits, hand, wrist, forearm, and elbow. Sensation intact surrounding the wound. Neurovascularly intact.) Skin: No rashes, Other (Bruising across left arm and left lateral chest wall/flank) Labs Labs: Laboratory Tests Test 02/13/22 10:40 Sodium Level 136 mmol/L (136-145) Potassium Level 3.9 mmol/L (3.5-5.1) Chloride Level 100 mmol/L (98-107) Carbon Dioxide Level 32 mmol/L (21-32) Anion Gap 4 (6-14) Blood Urea Nitrogen 32 mg/dL (7-20) Creatinine 1.2 mg/dL (0.6-1.0) Estimated GFR (Cockcroft-Gault) 42.9 Glucose Level 90 mg/dL (70-99) Calcium Level 9.2 mg/dL (8.5-10.1) Magnesium Level 2.6 mg/dL (1.8-2.4) Comment Review of Relevant I have reviewed the following items jess (where applicable) has been applied. Medications: Current Medications Medications (Trade) Dose Ordered Sig/Serena Route PRN Reason Start Time Stop Time Status Last Admin Dose Admin Epinephrine HCl (Adrenalin) 1 mg STK-MED ONCE .ROUTE 02/13/22 11:05 02/13/22 11:05 DC 02/13/22 11:52 Bupivacaine HCl/ Epinephrine Bitart (Sensorcaine-Epi 0.25%-1:[id number] Mpf) 30 ml STK-MED ONCE .ROUTE 02/13/22 11:46 02/13/22 11:47 DC 02/13/22 11:51 Justifications for Admission Other Justification LUIZ MERCADO MD Feb 14, 2022 09:15
[2022-02-14] MEDS: DOCUSATE SODIUM 100 MG CAPSULE. PO SCH (09:22)
[2022-02-14] MEDS: SENNOSIDES/DOCUSATE 8.6/50MG TABLET. PO SCH ×2 (09:22→20:25)
[2022-02-14] MEDS: TRIAMTERENE/HCTZ 37.5/25MG TABLET. PO SCH (09:22)
[2022-02-14] MEDS: FLUDROCORTISONE 0.1 MG TABLET PO SCH (09:22)
[2022-02-14] MEDS: FERROUS SULFATE 325 MG TABLET. PO SCH (09:22)
[2022-02-14] MEDS: FAMOTIDINE 20 MG TABLET. PO SCH ×2 (09:22→20:24)
[2022-02-14] MEDS: FLUTICASONE 50MCG/NASAL SPRAY 16GM BOTTLE. NS SCH (09:23)
[2022-02-14 11:00] VITALS: BP 137/56
[2022-02-14] MEDS: oxyCODONE/APAP 5/325 1 TAB TABLET PO PRN ×2 (12:30→20:35)
[2022-02-14 15:00] VITALS: BP 105/34
[2022-02-14 19:00] VITALS: BP 104/48
[2022-02-14] MEDS: ATORVASTATIN CALCIUM 20 MG TABLET PO SCH (20:25)
[2022-02-14 23:00] VITALS: BP 110/41
[2022-02-15 03:00] VITALS: BP 122/43
[2022-02-15 07:00] VITALS: BP 112/45
[2022-02-15] MEDS: SENNOSIDES/DOCUSATE 8.6/50MG TABLET. PO SCH ×2 (07:51→20:35)
[2022-02-15] MEDS: DOCUSATE SODIUM 100 MG CAPSULE. PO SCH (07:51)
[2022-02-15] MEDS: FAMOTIDINE 20 MG TABLET. PO SCH ×2 (07:51→20:35)
[2022-02-15] MEDS: FERROUS SULFATE 325 MG TABLET. PO SCH (07:51)
[2022-02-15] MEDS: FLUDROCORTISONE 0.1 MG TABLET PO SCH (07:53)
[2022-02-15] MEDS: oxyCODONE/APAP 5/325 1 TAB TABLET PO PRN ×3 (07:57→23:08)
[2022-02-15 08:39] LABS: BASO % 0 % (0-3); EOS # 0.2 x10^3/uL (0.0-0.7); EOS % 2 % (0-3); HEMATOCRIT 30.1 % (36.0-47.0); HEMOGLOBIN 9.7 g/dL (12.0-15.5); LYMPH # 2.7 x10^3/uL (1.0-4.8); LYMPH % 38 % (24-48); MEAN CORPUSCULAR HEMOGLOBIN 32 pg (25-35); MEAN CORPUSCULAR HGB CONC 32 g/dL (31-37); MEAN CORPUSCULAR VOLUME 99 fL (79-100); MONO # 0.8 x10^3/uL (0.0-1.1); MONO % 12 % (0-9); NEUT # 3.3 x10^3/uL (1.8-7.7); NEUT % 48 % (31-73); PLATELET COUNT 240 x10^3/uL (140-400); RED BLOOD COUNT 3.03 x10^6/uL (3.50-5.40); RED CELL DISTRIBUTION WIDTH 14.3 % (11.5-14.5)
[2022-02-15] MEDS: TRIAMTERENE/HCTZ 37.5/25MG TABLET. PO SCH (09:00)
[2022-02-15] MEDS: FLUTICASONE 50MCG/NASAL SPRAY 16GM BOTTLE. NS SCH (09:00)
[2022-02-15 09:02] LABS: ALBUMIN 2.6 g/dL (3.4-5.0); ALBUMIN/GLOBULIN RATIO 0.9 (1.0-1.7); CALCIUM 8.4 mg/dL (8.5-10.1); CREATININE 1.2 mg/dL (0.6-1.0); GFR 42.9; POTASSIUM 3.9 mmol/L (3.5-5.1); TOTAL BILIRUBIN 0.2 mg/dL (0.2-1.0); TOTAL PROTEIN 5.6 g/dL (6.4-8.2)
[2022-02-15 10:50] VITALS: BP 134/47
--- NOTE | 2022-02-15 13:18 | PDOC ---
[facility] [facility] PROGRESS NOTE Date of Service DOS: DATE: 02/15/22 TIME: 13:16 Chief Complaint Chief Complaint POD #2, evacuation of the left forearm hematoma, debridement of the left forearm wound, after a fall injyry at home Upper extremity laceration, de-glove injury, fell over using her walker history A. fib hypertension chronic diastolic CHF weakness and debility IBS, stool softeners added moderate malnutrition was poa, weight loss, History of Present Illness History of Present Illness 02/15, long discussions today x2, patietn and , then daughter when she arrived. malnutrition and weakness are her largest medical problmes, and she struggles to eat, she doesnt want to try Skilled rehab again, was there 6 weeks without benefit recently 02.14, surg went well, Dr. Ramirez following PT and OT for DC plan will need skilled 02/13/22 No acute events overnight. Working with PT this morning with strong positive orthostatic hypotension. 500 NS bolus given and pre-op labs obtained. All antihypertensives held. 02/12, pt doing OK needs Pt and OT plan surg soon, Discused with DR. Ramirez could consider hospice due to falls and weakness and poor improvement [facility] Presented with extensive laceration wound to upper extremity plastic surgery following, plan surgery sometime this week. holding patient's stephen Chandra for Hx of TIA, no prior CVA As needed pain control Cardiac diet Home meds as indicated Wound care consult she feels that prior stay at [facility] "did nothing for her" she was there 6 weeks due to falls, she wound prefer to DC home if able Vitals/I&O Vitals/I&O: Vital Signs Date Time Temp Pulse Resp B/P (MAP) Pulse Ox O2 Delivery O2 Flow Rate FiO2 02/15/22 10:50 97.6 70 16 134/47 (76) 92 Room Air 97.6 02/14/22 20:35 2.0 Physical Exam General: Alert, Oriented X3, Cooperative, No acute distress Heart: No murmurs Lungs: Clear Abdomen: Normal bowel sounds Extremities: No clubbing, Other (Left forearm with large dorsal wound measuring at least 15 x 7 cm with nonexpanding hematoma distally and devitalized epidermis overlying the hematoma. Some exposed dermis. Xeroform dressing, ABD, and rolled gauze reapplied. Patient with good range of motion of the digits, hand, wrist, forearm, and elbow. Sensation intact surrounding the wound. Neurovascularly intact.) Skin: No rashes, Other (Bruising across left arm and left lateral chest wall/flank) Labs Labs: Laboratory Tests Test 02/15/22 07:50 White Blood Count 7.0 x10^3/uL (4.0-11.0) Red Blood Count 3.03 x10^6/uL (3.50-5.40) Hemoglobin 9.7 g/dL (12.0-15.5) Hematocrit 30.1 % (36.0-47.0) Mean Corpuscular Volume 99 fL (79-100) Mean Corpuscular Hemoglobin 32 pg (25-35) Mean Corpuscular Hemoglobin Concent 32 g/dL (31-37) Red Cell Distribution Width 14.3 % (11.5-14.5) Platelet Count 240 x10^3/uL (140-400) Neutrophils (%) (Auto) 48 % (31-73) Lymphocytes (%) (Auto) 38 % (24-48) Monocytes (%) (Auto) 12 % (0-9) Eosinophils (%) (Auto) 2 % (0-3) Basophils (%) (Auto) 0 % (0-3) Neutrophils # (Auto) 3.3 x10^3/uL (1.8-7.7) Lymphocytes # (Auto) 2.7 x10^3/uL (1.0-4.8) Monocytes # (Auto) 0.8 x10^3/uL (0.0-1.1) Eosinophils # (Auto) 0.2 x10^3/uL (0.0-0.7) Basophils # (Auto) 0.0 x10^3/uL (0.0-0.2) Sodium Level 139 mmol/L (136-145) Potassium Level 3.9 mmol/L (3.5-5.1) Chloride Level 102 mmol/L (98-107) Carbon Dioxide Level 32 mmol/L (21-32) Anion Gap 5 (6-14) Blood Urea Nitrogen 31 mg/dL (7-20) Creatinine 1.2 mg/dL (0.6-1.0) Estimated GFR (Cockcroft-Gault) 42.9 BUN/Creatinine Ratio 26 (6-20) Glucose Level 88 mg/dL (70-99) Calcium Level 8.4 mg/dL (8.5-10.1) Total Bilirubin 0.2 mg/dL (0.2-1.0) Aspartate Amino Transf (AST/SGOT) 18 U/L (15-37) Alanine Aminotransferase (ALT/SGPT) 13 U/L (14-59) Alkaline Phosphatase 88 U/L (46-116) Total Protein 5.6 g/dL (6.4-8.2) Albumin 2.6 g/dL (3.4-5.0) Albumin/Globulin Ratio 0.9 (1.0-1.7) Comment Review of Relevant I have reviewed the following items jess (where applicable) has been applied. Justifications for Admission Other Justification LUIZ MERCADO MD Feb 15, 2022 13:18
[2022-02-15 15:00] VITALS: BP 113/35
[2022-02-15 19:00] VITALS: BP 127/49
[2022-02-15] MEDS: ATORVASTATIN CALCIUM 20 MG TABLET PO SCH (20:35)
[2022-02-15 23:23] VITALS: BP 170/58
[2022-02-16] VITALS (8 sets, daily range): BP systolic 84–155; BP diastolic 40–67
[2022-02-16] MEDS: FAMOTIDINE 20 MG TABLET. PO SCH ×2 (08:19→21:41)
[2022-02-16] MEDS: TRIAMTERENE/HCTZ 37.5/25MG TABLET. PO SCH (08:19)
[2022-02-16] MEDS: FLUTICASONE 50MCG/NASAL SPRAY 16GM BOTTLE. NS SCH (08:19)
[2022-02-16] MEDS: SENNOSIDES/DOCUSATE 8.6/50MG TABLET. PO SCH ×2 (08:19→21:00)
[2022-02-16] MEDS: FLUDROCORTISONE 0.1 MG TABLET PO SCH (08:19)
[2022-02-16] MEDS: DOCUSATE SODIUM 100 MG CAPSULE. PO SCH (08:19)
[2022-02-16] MEDS: FERROUS SULFATE 325 MG TABLET. PO SCH (08:19)
[2022-02-16] MEDS: oxyCODONE/APAP 5/325 1 TAB TABLET PO PRN ×2 (08:20→21:47)
--- NOTE | 2022-02-16 11:14 | PDOC ---
[facility] PROGRESS NOTE Date of Service DOS: DATE: 02/16/22 TIME: 11:11 Chief Complaint Chief Complaint POD #2, evacuation of the left forearm hematoma, debridement of the left forearm wound, after a fall injyry at home Upper extremity laceration, de-glove injury, fell over using her walker history A. fib hypertension chronic diastolic CHF weakness and debility IBS, stool softeners added moderate malnutrition was poa, weight loss, History of Present Illness History of Present Illness 02/16/2022 Patient seen and examined Discussed with RN Chart reviewed Left arm has clean dry intact dressing and a wound VAC I explained she might need to go to skilled but she kind of refuses wants to go home with her 02/15, long discussions today x2, patietn and , then daughter when she arrived. malnutrition and weakness are her largest medical problmes, and she struggles to eat, she doesnt want to try Skilled rehab again, was there 6 weeks without benefit recently 02.14, surg went well, Dr. Ramirez following PT and OT for DC plan will need skilled 02/13/22 No acute events overnight. Working with PT this morning with strong positive orthostatic hypotension. 500 NS bolus given and pre-op labs obtained. All antihypertensives held. 02/12, pt doing OK needs Pt and OT plan surg soon, Discused with DR. Ramirez could consider hospice due to falls and weakness and poor improvement [facility] Presented with extensive laceration wound to upper extremity plastic surgery following, plan surgery sometime this week. holding patient's Tracyis takshreya for Hx of TIA, no prior CVA As needed pain control Cardiac diet Home meds as indicated Wound care consult she feels that prior stay at [facility] "did nothing for her" she was there 6 weeks due to falls, she wound prefer to DC home if able Vitals/I&O Vitals/I&O: Vital Signs Date Time Temp Pulse Resp B/P (MAP) Pulse Ox O2 Delivery O2 Flow Rate FiO2 02/16/22 11:00 97.7 67 16 114/44 (67) 93 Room Air 97.7 Physical Exam General: Alert, Oriented X3, Cooperative, No acute distress Heart: No murmurs Lungs: Clear Abdomen: Normal bowel sounds Extremities: No clubbing, Other (Left arm with wound VAC and clean dry intact dressing) Skin: No rashes, Other (Bruising across left arm and left lateral chest wall/flank) Assessment and Plan Assessmemt and Plan Postop evacuation of the left forearm hematoma, debridement of the left forearm wound, after a fall injyry at home Upper extremity laceration, de-glove injury, fell over using her walker history A. fib hypertension chronic diastolic CHF weakness and debility IBS, stool softeners added moderate malnutrition was poa, weight loss, Plan Wound care Wound VAC As needed morphine Home meds Trend labs DVT prophylaxis Encourage p.o. intake Full code PT OT Discharge disposition pending (suspect she would do well at assisted but really does not want to go) Comment Review of Relevant I have reviewed the following items jess (where applicable) has been applied. Justifications for Admission Other Justification LU GANNON III DO Feb 16, 2022 11:14
--- NOTE | 2022-02-16 12:19 | NUR ---
Report received from RUSS Calderon. This RN assumed care of pt at this time. Pt denies any needs.
[2022-02-16] MEDS: ASPIRIN ENTERIC COATED 81 MG TABLET.DR. PO SCH (14:05)
[2022-02-16] MEDS: ATORVASTATIN CALCIUM 20 MG TABLET PO SCH (21:42)
[2022-02-17 07:00] VITALS: BP 155/61
[2022-02-17] MEDS: TRIAMTERENE/HCTZ 37.5/25MG TABLET. PO SCH (08:18)
[2022-02-17] MEDS: ASPIRIN ENTERIC COATED 81 MG TABLET.DR. PO SCH (08:18)
[2022-02-17] MEDS: FAMOTIDINE 20 MG TABLET. PO SCH (08:20)
[2022-02-17] MEDS: DOCUSATE SODIUM 100 MG CAPSULE. PO SCH (08:21)
[2022-02-17] MEDS: FERROUS SULFATE 325 MG TABLET. PO SCH (08:21)
[2022-02-17] MEDS: SENNOSIDES/DOCUSATE 8.6/50MG TABLET. PO SCH (08:22)
[2022-02-17] MEDS: FLUTICASONE 50MCG/NASAL SPRAY 16GM BOTTLE. NS SCH (08:24)
[2022-02-17] MEDS: FLUDROCORTISONE 0.1 MG TABLET PO SCH (08:27)
--- NOTE | 2022-02-17 10:31 | PDOC ---
[facility] PROGRESS NOTE Date of Service DOS: DATE: 02/17/22 TIME: 10:30 Chief Complaint Chief Complaint POD #2, evacuation of the left forearm hematoma, debridement of the left forearm wound, after a fall injyry at home Upper extremity laceration, de-glove injury, fell over using her walker history A. fib hypertension chronic diastolic CHF weakness and debility IBS, stool softeners added moderate malnutrition was poa, weight loss, History of Present Illness History of Present Illness 02/17/2022 Patient seen , just got off the commode Discussed with RN Discussed with case management Chart reviewed We plan to discharge to home with wound VAC after it is changed today Discussed with pug mill operator helper 02/16/2022 Patient seen and examined Discussed with RN Chart reviewed Left arm has clean dry intact dressing and a wound VAC I explained she might need to go to skilled but she kind of refuses wants to go home with her 02/15, long discussions today x2, patietn and , then daughter when she arrived. malnutrition and weakness are her largest medical problmes, and she struggles to eat, she doesnt want to try Skilled rehab again, was there 6 weeks without benefit recently 02.14, surg went well, Dr. Ramirez following PT and OT for DC plan will need skilled 02/13/22 No acute events overnight. Working with PT this morning with strong positive orthostatic hypotension. 500 NS bolus given and pre-op labs obtained. All antihypertensives held. 02/12, pt doing OK needs Pt and OT plan surg soon, Discused with DR. Ramirez could consider hospice due to falls and weakness and poor improvement [facility] Presented with extensive laceration wound to upper extremity plastic surgery following, plan surgery sometime this week. holding patient's stephen Chandra for Hx of TIA, no prior CVA As needed pain control Cardiac diet Home meds as indicated Wound care consult she feels that prior stay at [facility] "did nothing for her" she was there 6 weeks due to falls, she wound prefer to DC home if able Vitals/I&O Vitals/I&O: Vital Signs Date Time Temp Pulse Resp B/P (MAP) Pulse Ox O2 Delivery O2 Flow Rate FiO2 02/17/22 08:27 62 155/61 02/17/22 07:00 97.6 19 95 Room Air 97.6 02/16/22 21:47 2.0 I & O 02/16/22 02/16/22 02/17/22 15:00 23:00 07:00 Intake Total 120 ml Output Total 100 ml Balance 20 ml Physical Exam General: Alert, Oriented X3, Cooperative, No acute distress Heart: No murmurs Lungs: Clear Abdomen: Normal bowel sounds Extremities: No clubbing, Other (Left arm with wound VAC and clean dry intact dressing) Skin: No rashes, Other (Bruising across left arm and left lateral chest wall/flank) Assessment and Plan Assessmemt and Plan Postop evacuation of the left forearm hematoma, debridement of the left forearm wound, after a fall injyry at home Upper extremity laceration, de-glove injury, fell over using her walker history A. fib hypertension chronic diastolic CHF weakness and debility IBS, stool softeners added moderate malnutrition was poa, weight loss, Plan We hope to discharge to home later today plus minus home health For now continue the following; Wound care Wound VAC is being changed today As needed pain meds Home meds Trend labs DVT prophylaxis Encourage p.o. intake Full code PT OT Comment Review of Relevant I have reviewed the following items jess (where applicable) has been applied. Medications: Current Medications Medications (Trade) Dose Ordered Sig/Serena Route PRN Reason Start Time Stop Time Status Last Admin Dose Admin Aspirin (Ecotrin) 81 mg [id number] PO 02/16/22 14:00 02/17/22 08:18 Justifications for Admission Other Justification LU GANNON III DO Feb 17, 2022 10:31
[2022-02-17] MEDS ORDERED: OXYC1TAB15 PO (10:36)
[2022-02-17] MEDS ORDERED: FLUD0.1T PO (10:36)
--- NOTE | 2022-02-17 10:37 | SNU/HH DC ---
DISCHARGE WITH HOME HEALTH DISCHARGE INFORMATION: Condition on Discharge: Stable CODE STATUS: Code Status: Full HOME HEALTH: Face to Face: I certify this patient is under my care and that I, or a nurse practitioner or physician's assistant director of public works working with me, had a face to face encounter that meets the physician face to face encounter requirements with this patient on []. Medical Complications: Other (Recent fall with arm laceration and surgery) Halfway For: Assess & Educate Safety RN For Eval/Treatment: Yes Physical Therapy For: Evalulation/Treatment Occupational Therapy For: Evaluation/Treatment Home Health Aide For: Self-care PELLET POST INSPECTOR For: Community Resources Pt Meets Homebound Status: Unsteady balance w/ amb, POST DISCHARGE ORDERS: DIET AFTER DISCHARGE: Cardiac CERTIFICATION STATEMENT: Certification Statement: Certification Statement: Based on the above finding, I certify that this patient is confined to the home and needs intermittent correction care, physical therapy and/or speech therapy, or continues to need occupational therapy.~ This patient is under my care, and I have initiated the establishment of the plan of care.~ This patient will be followed by myself or a community physician who will periodically review the plan of care. Home Meds Active Scripts Fludrocortisone Acetate (FLUDROCORTISONE ACETATE) 0.1 Mg Tablet, 0.1 MG PO DAILY for . for 30 Days, #30 TAB Prov:LU GANNON III DO 02/17/22 Oxycodone/Apap 5-325 (PERCOCET 5-325 MG TABLET ) 1 Each Tablet, 1 TAB PO PRN Q4HRS PRN for MILD PAIN, 1ST CHOICE for 10 Days, #20 TAB Prov:LU GANNON III DO 02/17/22 Reported Medications Ferrous Sulfate (FERROUS SULFATE) 325 Mg Tablet, 325 MG PO 09/24/16 Diazepam (DIAZEPAM) 5 Mg Tablet, 5 MG PO DAILY, TAB 10/11/14 Linaclotide (LINZESS) 145 Mcg Capsule, 145 MCG PO 10/11/14 Amlodipine Besylate (NORVASC) 5 Mg Tablet, 5 MG PO DAILY, TAB 10/11/14 Triamterene/Hydrochlorothiazid (TRIAMTERENE-HCTZ 37.5-25 MG CP) 1 Each Capsule, 1 CAP PO DAILY, CAP 10/11/14 Atorvastatin Calcium (LIPITOR) 20 Mg Tablet, 20 MG PO DAILY for FOR CHOLESTEROL, #30 TAB 0 Refills 10/11/14 Clonazepam (CLONAZEPAM ) 0.5 Mg Tablet, 0.5 MG PO BID, TAB 10/11/14 Ibuprofen (IBUPROFEN) 800 Mg Tablet, 800 MG PO Q6H PRN for PAIN, TAB 10/11/14 Ranitidine Hcl (RANITIDINE HCL) 300 Mg Capsule, 300 MG PO DAILY, CAP 10/11/14 Mometasone Furoate (NASONEX) 17 Gm [place].pump, 2 SPRAYS NS DAILY, EACH 10/11/14 Ibuprofen/Diphenhydramine Cit (MOTRIN PM CAPLET) 1 Each Tablet, 1 EACH PO 10/11/14 LU GANNON III DO Feb 17, 2022 10:37
--- NOTE | 2022-02-17 10:51 | DS ---
DATE OF DISCHARGE: 02/17/2022 ADMITTING DIAGNOSIS: Fall with left upper extremity laceration. DISCHARGE DIAGNOSES: Postoperative day #5, evacuation of left forearm hematoma, debridement of left forearm wound and split-thickness grafting to the left forearm wound, consult plastic surgery, history of atrial fibrillation, chronic anticoagulation, hypertension, anxiety. PROCEDURE: As above. HOSPITAL COURSE: The patient is a pleasant elderly female who fell. She suffered a left arm laceration. It was pretty significant and had a hematoma, we have to consult Plastic Surgery. She was taken for the above procedure. Over the past few days, she slowly returned to her baseline. We offered her to go to skilled, but she wants to go home. We are going to discharge her to home with close outpatient followup. It should be noted that I am going to continue to hold her Eliquis as she is a high fall risk. DISPOSITION: Home. ACTIVITY: As tolerated. DIET: Low sodium. MEDICATIONS: We are holding her home Eliquis for now until she follows up with her doctor as she is a high fall risk plus she had recent surgery with a hematoma, p.r.n. Percocet 5 q.4 hour, p.r.n. amlodipine 5 a day, atorvastatin 20 a day, clonazepam 0.5 b.i.d., iron, ibuprofen, Linzess 145 a day, Nasonex spray, ranitidine 300 daily and hydrochlorothiazide/triamterene 25/37.5 one a day. TOTAL TIME: [address]: Epifanio TID: [id number]
[2022-02-17 11:00] VITALS: BP 106/83
--- NOTE | 2022-02-17 14:30 | NUR ---
WOUND retirement wound vac instruction given to patient and her . Patient and voiced understanding and patient stated she would be compliant. Wound vac will remain in place for remainder of the week. Patient has scheduled appointment with Dr. Silvia Ramirez on 02/20/2022 at 09:00 for re-evaluation of need for wound vac and progress of skin graft. Will work with Dr. Ramirez for further wound vac use should that be required.
[2022-02-17 15:00] VITALS: BP 113/59
--- NOTE | 2022-02-17 17:57 | NUR ---
1640 patient discharged to home with spouse. Taken out by wheelchair
== END 2022-02-17 16:40 | disposition home health service (06) | DRG 577 ==
LOC: 4 NORTH 12:46
PROVIDERS: ADMIT Internal Medicine; ATTEND Internal Medicine
PROC: 0HREX74 Replacement of Left Lower Arm Skin with Autologous Tissue Substitute, Partial Thickness, External Approach (ICD-10-PCS; 2022-02-13)
PROC: 0JQJ0ZZ Repair Right Hand Subcutaneous Tissue and Fascia, Open Approach (ICD-10-PCS; 2022-02-13)
PROC: 0HBJXZZ Excision of Left Upper Leg Skin, External Approach (ICD-10-PCS; 2022-02-13)
PROC: 0JCH0ZZ Extirpation of Matter from Left Lower Arm Subcutaneous Tissue and Fascia, Open Approach (ICD-10-PCS; principal; 2022-02-13 10:30)
DX: S50.12XA Contusion of left forearm, initial encounter (principal); E44.0 Moderate protein-calorie malnutrition; I50.32 Chronic diastolic (congestive) heart failure; S41.111A Laceration without foreign body of right upper arm, initial encounter; K58.9 Irritable bowel syndrome, unspecified; E03.9 Hypothyroidism, unspecified; E78.5 Hyperlipidemia, unspecified; F41.9 Anxiety disorder, unspecified; I11.0 Hypertensive heart disease with heart failure; I48.91 Unspecified atrial fibrillation; I95.1 Orthostatic hypotension; S41.112A Laceration without foreign body of left upper arm, initial encounter; Z79.01 Long term (current) use of anticoagulants; Z86.73 Personal history of transient ischemic attack (TIA), and cerebral infarction without residual deficits; Z87.891 Personal history of nicotine dependence; Z91.81 History of falling; W18.39XA Other fall on same level, initial encounter; Y93.89 Activity, other specified; Y92.89 Other specified places as the place of occurrence of the external cause; Y99.8 Other external cause status; Z20.822 Contact with and (suspected) exposure to COVID-19
CPT/HCPCS: 36415; 80048; 80053; 83735; 85025; 87426; A4930; A6206; A6402; A6550; J0171; J0690; J1100; J2270; J2370; J2405; J2704; J3010; J3490; U0003; 97110-GP; 97116-GP; 97530-GO; 97530-GP; 97535-GO; G0378